=== PATIENT | male | born 1940 | race Caucasian/White ===

== ENCOUNTER → 2016-12-15 | Outpatient (CLI) | payer MEDICARE, OTHER | END | disposition home or self-care (01) | LOC: PCVCIMAG 14:21 | PROVIDERS: ATTEND Internal Medicine Cardiovascular Disease | DX: I70.203 Unspecified atherosclerosis of native arteries of extremities, bilateral legs (principal); M79.605 Pain in left leg; M79.604 Pain in right leg; E78.5 Hyperlipidemia, unspecified; I10 Essential (primary) hypertension | CPT/HCPCS: 93925 ==

== ENCOUNTER → 2017-01-31 | Outpatient (CLI) | payer MEDICARE, OTHER | LOC: PCVCCLINIC 15:08 | PROVIDERS: ATTEND Internal Medicine Cardiovascular Disease | DX: I48.91 Unspecified atrial fibrillation (principal); R00.1 Bradycardia, unspecified; E78.5 Hyperlipidemia, unspecified | CPT/HCPCS: 80061; 93005; 93306; G0463 ==

== ENCOUNTER → 2017-07-04 | Outpatient (CLI) | payer MEDICARE, OTHER ==
[~2017-07-04] MED LIST: REGADENOSON 0.4 MG/5 ML DISP.SYRIN. IV ONE
--- NOTE | 2017-07-04 12:12 | PCVCIMAG ---
APPROVED REPORT Study performed: 07/04/2017 08:05:34 EXAM: Comprehensive 2D, Doppler, and color-flow Echocardiogram Patient Location: Echo lab Status: routine BSA: 1.99 HR: 69 bpm Rhythm: NSR Other Information Study Quality: Good Risk Factors: Cardiac Risk Factors: DM, Hyperlipidemia, HTN Indications Atrial Fibrillation Pacemaker CAD 2D Dimensions LVEF(%): 63.00 (>50%) IVSd: 12.39 (7-11mm)LVOT Diam: 19.99 (18-24mm) LVDd: 47.01 mm PWd: 11.70 (7-11mm)Ascending Ao: 30.76 (22-36mm) LVDs: 33.07 (25-40mm) Left Atrium: 47.07 (27-40mm) Aortic Root: 30.11 mm LV Single Plane 4CH: 63.77 % LV Single Plane 2CH: 68.76 %Snowden's LVEF: 66.26 % Biplane EF: 66.0 % Volumes Left Atrial Volume (Systole) Single Plane 4CH: 118.18 mLSingle Plane 2CH: 61.50 mL LA ESV Index: 45.00 mL/m2 Aortic Valve AoV Peak Hiren.: 1.62 m/s AO Peak Gr.: 10.44 mmHgLVOT Max P.79 mmHg LVOT Max V: 0.97 m/s CESIA Vmax: 1.89 cm2 Mitral Valve E/A Ratio: 4.5 MV Decel. Time: 171.97 ms MV E Max Hiren.: 1.62 m/s MV A Hiren.: 0.36 m/s MV Max Hiren.: 4.86 m/s MV Mean Hiren.: 4.08 m/s MR Radius: 0.66 cm MR Als. Hiren: 0.31 m/s MR Flow: 83.06 mL/s IVRT: 55.36 ms TDI E/Lateral E': 32.40E/Medial E': 32.40 Medial E' Hiren.: 0.05 m/s Lateral E' Hiren.: 0.05 m/s Pulmonary Valve PV Peak Hiren.: 0.94 m/sPV Peak Gr.: 3.53 mmHg Tricuspid Valve TR Peak Hiren.: 3.17 m/sRAP Estimate: 7.00 mmHg TR Peak Gr.: 40.24 mmHg PA Pressure: 47.00 mmHg Left Ventricle The left ventricle is normal size. There is normal LV segmental wall motion. Mild concentric left ventricular hypertrophy. Left ventricular systolic function is normal. The left ventricular ejection fraction is within the normal range. LVEF is 65%. Right Ventricle Right ventricle is at the upper limits of normal. The right ventricular systolic function is normal. Atria Left atrium is moderately dilated. Right atrium is dilated. Aortic Valve The Aortic valve is sclerotic. No aortic regurgitation is present. There is no aortic valvular stenosis. Mitral Valve The mitral valve is normal in structure. Moderate mitral regurgitation. No evidence of mitral valve stenosis. Tricuspid Valve The tricuspid valve is normal in structure. Moderate tricuspid regurgitation. Pulmonary artery pressure is 47 mmHg. Pulmonic Valve The pulmonary valve is normal in structure. Trace pulmonic regurgitation. Great Vessels The aortic root is normal in size. IVC is normal in size and collapses with >50% inspiration Pericardium There is no pericardial effusion. <Conclusion> The left ventricle is normal size. Mild concentric left ventricular hypertrophy. LVEF is 65%. Right ventricle is at the upper limits of normal. Left atrium is moderately dilated. Right atrium is dilated. The Aortic valve is sclerotic. There is no aortic valvular stenosis. Moderate mitral regurgitation. Moderate tricuspid regurgitation. Pulmonary artery pressure is 47 mmHg. There is no pericardial effusion.
--- NOTE | 2017-07-04 16:56 | PCVCIMAG ---
APPROVED REPORT Exam: Nuclear Stress Test Indication: CAD, Pre op Patient Location: Out-Patient Stress Nurse: Madelaine Mendez RN, Megan Soares RN [place] Tech:Michael Tripathi NMTCB Ht: 5 ft 9 in Wt: 182 lbs BSA: 1.99 m2 HR: 70 bpm BP: 143/66 mmHg BMI: 26.8 Rhythm: Paced Medical History Medical History: Age, Hyperlipidemia, HTN, CAD, Dm, Afib, Medications: Bentyl, Savaysa, Dilaudid, Victoza, Xanax, Lasix, Gabapentin, KCL, Requip, Rosuvastatin, NTG Allergies: Flaco Inhibitors, Peanuts Pretest Chest Pain Characteristics: No chest pain Exercise History: Sedentary NM EXAM: Myocardial Perfusion REST/STRESS Imaging Protocol: Rest Tc-99m/Stress Tc-99m 1 day Resting Data Rest SPECT myocardial perfusion imaging was performed in supine position 45 minutes following the intravenous injection of 11.5 mCi of Tc-99m Sestamibi. Time of rest injection: 0900 Date: 07/04/2017 The images were gated to evaluate regional wall motion and calculate left ventricular ejection fraction. Pharmacologic Stress Pharmacologic stress test was performed by injecting Regadenoson 0.4 mg IV push followed by the intravenous injection of 36 mCi of Tc-99m Sestamibi. Time of stress injection: 1030 Date: 07/04/2017 The images were gated to evaluate regional wall motion and calculate left ventricular ejection fraction. Study Quality Study: Good Artifact: Mild Diaphragmatic artifact Study Data SSS: 6 SRS: 8 SDS: 0 TID = 1.11. Perfusion No evidence of stress induced ischemia or prior myocardial infarction. Wall Motion No gated images were able to be obtained. Nuclear Conclusion No evidence of stress induced ischemia or prior myocardial infarction. No change since prior study dated July 2015. Interpreted by: Walter Isaac MD Electronically Approved: 07/04/2017 13:14:57 Stress Test Details Stress Test: Pharmacologic stress testing performed using 0.4 mg of regadenoson per 5 mL given IV over 10 seconds. Reason for pharmacologic stress test: physical limitation. HR Resting HR: 70 bpmMax Heart Rate (APMHR): 141 bpm Max HR Achieved: 70 bpmTarget HR (85% APMHR): 119 bpm % of APMHR: 49 Recovery HR: 70 bpm BP Resting BP: 143/66 mmHg Max BP: 150/70 mmHg ECG Resting ECG: Paced Rhythm Stress ECG: Paced Rhythm Recovery ECG: Paced Rhythm Clinical Reason for Termination: Completed protocol Stress Symptoms: Lightheaded Exercise duration: min 55 sec Exercise capacity: 1.0 METs Stress ECG Conclusion nondiagnostic paced <Conclusion> nondiagnostic paced
== END | disposition home or self-care (01) ==
LOC: PCVCIMAG 07:53
PROVIDERS: ATTEND Internal Medicine Cardiovascular Disease
DX: Z01.810 Encounter for preprocedural cardiovascular examination (principal); I08.1 Rheumatic disorders of both mitral and tricuspid valves; I48.91 Unspecified atrial fibrillation; I25.10 Atherosclerotic heart disease of native coronary artery without angina pectoris; I10 Essential (primary) hypertension; K52.9 Noninfective gastroenteritis and colitis, unspecified; E11.9 Type 2 diabetes mellitus without complications; E78.5 Hyperlipidemia, unspecified; Z95.0 Presence of cardiac pacemaker
CPT/HCPCS: 78452; 93017; 93306; A9500; J2785

== ENCOUNTER → 2018-05-14 | Outpatient (CLI) | payer MEDICARE, OTHER | END | disposition home or self-care (01) | LOC: PCVCCLINIC 16:20 | PROVIDERS: ATTEND Internal Medicine Cardiovascular Disease | DX: G47.30 Sleep apnea, unspecified (principal); I49.5 Sick sinus syndrome; I10 Essential (primary) hypertension; E78.00 Pure hypercholesterolemia, unspecified; I48.91 Unspecified atrial fibrillation; Z95.0 Presence of cardiac pacemaker; Z79.82 Long term (current) use of aspirin | CPT/HCPCS: 93005; 93279; G0463 ==

== ENCOUNTER → 2018-11-23 | Outpatient (CLI) | payer MEDICARE, OTHER | END | disposition home or self-care (01) | LOC: PCVCCLINIC 09:59 | PROVIDERS: ATTEND Internal Medicine Cardiovascular Disease | DX: I25.10 Atherosclerotic heart disease of native coronary artery without angina pectoris (principal); I48.2 Chronic atrial fibrillation; E13.8 Other specified diabetes mellitus with unspecified complications; E78.00 Pure hypercholesterolemia, unspecified; I49.5 Sick sinus syndrome; M19.90 Unspecified osteoarthritis, unspecified site; Z95.0 Presence of cardiac pacemaker; Z79.899 Other long term (current) drug therapy | CPT/HCPCS: 36415; 80061; 93279; G0463 ==

== ENCOUNTER → 2019-06-24 | Outpatient (CLI) | payer MEDICARE, OTHER | END | disposition home or self-care (01) | LOC: PCVCCLINIC 16:01 | PROVIDERS: ATTEND Internal Medicine Cardiovascular Disease | DX: I25.10 Atherosclerotic heart disease of native coronary artery without angina pectoris (principal); E13.8 Other specified diabetes mellitus with unspecified complications; I10 Essential (primary) hypertension; I49.5 Sick sinus syndrome; E78.00 Pure hypercholesterolemia, unspecified; I87.2 Venous insufficiency (chronic) (peripheral); Z86.79 Personal history of other diseases of the circulatory system; Z91.010 Allergy to peanuts | CPT/HCPCS: 93005; G0463 ==